=== PATIENT | male | born 1980 | race Caucasian/White ===

== ENCOUNTER 2017-07-05 19:42 | Emergency (ER) | payer OTHER ==
[~2017-07-05] VITALS: Ht 162.6 cm; Wt 84.8 kg
--- NOTE | 2017-07-05 19:42 | NUR ---
BIB [facility]
[2017-07-05 19:49] VITALS: BP 145/93
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
[2017-07-05 20:58] VITALS: BP 140/91
== END 2017-07-05 20:58 ==
LOC: MED 19:42
DX: Z02.89 Encounter for other administrative examinations (principal); S93.401A Sprain of unspecified ligament of right ankle, initial encounter; M25.511 Pain in right shoulder; M25.512 Pain in left shoulder; V49.40XA Driver injured in collision with unspecified motor vehicles in traffic accident, initial encounter; W22.11XA Striking against or struck by driver side automobile airbag, initial encounter; Y93.I9 Activity, other involving external motion; Y99.8 Other external cause status; Y92.410 Unspecified street and highway as the place of occurrence of the external cause
CPT/HCPCS: 73610; 99284; Q0092